=== PATIENT | male | born 1945 | race Caucasian/White ===

== ENCOUNTER → 2017-10-28 | Outpatient (CLI) | payer OTHER, MEDICARE ==
[~2017-10-28] MED LIST: ABILIFY10 MG PO; ADVAIR HFA115 MCG/21 INH; AMBIEN 5 MG TABL5 M1 PO; AMBIEN PO; ANUSOL HC RECTAL; ANUSOL-HC25 MG RECTAL; CLONAZEPAM 1 MG1 M1 PO; COUMADIN 5 MG TA5 M1 PO; DESYREL; HYDROCODONE-AP1 EAC6 PO; KEFLEX500 MG PO; KLONOPIN; LAMICTAL; LAMICTAL XR300 MG PO; LAMICTAL2 MG PO; LEVAQUIN 500 M500 M2 PO; LEXAPRO 10 MG T10 MG PO; LIPITOR; LIPITOR 20 MG T20 M1 PO; LISINOPRIL; NEXIUM20 MG PO; OMEPRAZOLE; PREDNISONE 10 M10 MG; PRINIVIL10 MG PO; SEROQUEL; SEROQUEL300 MG PO; TIZANIDINE PO; TYLENOL325 MG PO; XARELTO15 MG PO; ZANAFLEX4 MG PO; ZOFRAN ODT4 MG PO; [UNRECOGNIZED DRUG - OTHER]
[2017-10-28 10:35] LABS: CREATININE 1.3 mg/dL (0.6-1.3)
== END ==
LOC: M.LAB 10:10 → M.CT 11:30
PROVIDERS: Internal Medicine
DX: I51.7 Cardiomegaly (principal); R91.8 Other nonspecific abnormal finding of lung field; I71.9 Aortic aneurysm of unspecified site, without rupture; I20.8 Other forms of angina pectoris

== ENCOUNTER → 2018-11-06 | Outpatient (CLI) | payer OTHER, MEDICARE | LOC: M.RAD 16:14 | DX: M19.031 Primary osteoarthritis, right wrist (principal); R20.2 Paresthesia of skin; R20.0 Anesthesia of skin ==

== ENCOUNTER → 2019-02-06 | Outpatient (CLI) | payer OTHER, MEDICARE | LOC: M.RAD 14:30 | DX: J98.4 Other disorders of lung (principal); J98.11 Atelectasis; J18.9 Pneumonia, unspecified organism; Z68.41 Body mass index [BMI] 40.0-44.9, adult ==